=== PATIENT | male | born 1965 | race Two or more races ===

== ENCOUNTER 2021-11-02 13:15 | Emergency (ER) | payer MEDICAID ==
[~2021-11-02] VITALS: Ht 172.7 cm; Wt 77.1 kg
[2021-11-02] MEDS ORDERED: DexAMETHasone SOD PHOS 10MG/1ML VIAL INJ IV ONE (14:45)
[2021-11-02] MEDS ORDERED: CYCL-837 PO (14:49)
[2021-11-02] MEDS ORDERED: DEX4T PO (14:49)
[2021-11-02 14:56] VITALS: BP 122/72
[2021-11-02] MEDS ORDERED: DexAMETHasone SOD PHOS 10MG/1ML VIAL INJ IM ONE (15:00)
== END 2021-11-02 15:04 | disposition home or self-care (01) ==
LOC: ER 13:15
DX: M54.12 Radiculopathy, cervical region (principal); M47.812 Spondylosis without myelopathy or radiculopathy, cervical region; M25.511 Pain in right shoulder; X58.XXXA Exposure to other specified factors, initial encounter; Y93.89 Activity, other specified; Y92.89 Other specified places as the place of occurrence of the external cause; Y99.8 Other external cause status
CPT/HCPCS: 72125; 96372; 99284; J1100